=== PATIENT | female | born 1985 | race Caucasian/White ===

== ENCOUNTER 2016-12-05 17:55 | Emergency (ER) | payer MEDICAID, OTHER ==
[2016-12-05 18:16] VITALS: BP 130/87
--- NOTE | 2016-12-05 18:52 | UC ---
Headache HPI - HPI Summary HPI Summary: 31 yo female with frontal TORRES since this AM throbbing nausea but no vomiting photophobia no f/c no stiff neck no CP or sob hx Hep C denies HIV hx opiate addiction on methadone no head trauma hx of migraines HAs becoming more frequent and severe can't remember ever having a brain CT - History Of Current Complaint Chief Complaint: UCHeadache Stated Complaint: HEADACHE Time Seen by Provider: 12/05/16 18:43 Hx Obtained From: Patient Hx Last Menstrual Period: 11/23/16 Onset/Duration: Gradual Onset, Lasting Hours Onset Of Symptoms: Gradual Initially Headache Was: Severe Currently Pain Is: Severe Pain Intensity: 8 Pain Scale Used: 0-10 Numeric Timing: Constant Character: Throbbing Location of Headache: Frontal Aggravating Factor: Nothing Allevating Factors: Nothing Associated Signs And Symptoms: Positive: Nausea - Allergies/Home Medications Allergies/Adverse Reactions: Allergies Allergy/AdvReac Type Severity Reaction Status Date / Time Acetaminophen Allergy See Comment Verified 12/05/16 18:16 PMH/Surg Hx/FS Hx/Imm Hx Previously Healthy: Yes Other History Of: Hepatitis C - Surgical History Surgical History: Yes Surgery Procedure, Year, and Place: gi surgery: major bowel obstruction, appy, cholecystectomy,. ovarian cyst 07/24, 3 [facility] left wrist - Family History Known Family History: Positive: Hypertension, Other - migraines - Social History Alcohol Use: None Substance Use Type: Prescribed, Other Substance Use Comment - Amount & Last Used: PT D/C'D FROM [facility] 08/20/2013 Smoking Status (MU): Light Every Day Tobacco Smoker Type: Cigarettes Amount Used/How Often: 5 cigs per day Length of Time of Smoking/Using Tobacco: 16 Years Have You Smoked in the Last Year: Yes - Immunization History Most Recent Influenza Vaccination: March 2015 Most Recent Tetanus Shot: Unknown Review of Systems Constitutional: Negative Skin: Negative Eyes: Negative ENT: Negative Respiratory: Negative Cardiovascular: Negative Gastrointestinal: Negative Genitourinary: Negative Motor: Negative Neurovascular: Negative Musculoskeletal: Negative Neurological: Headache Psychological: Negative All Other Systems Reviewed And Are Negative: Yes Physical Exam Triage Information Reviewed: Yes Appearance: Well-Appearing, No Pain Distress, Well-Nourished Vital Signs: Initial Vital Signs Temp 97.8 F 12/05/16 18:10 Pulse 57 12/05/16 18:10 Resp 16 12/05/16 18:10 BP 130/87 12/05/16 18:10 Pulse Ox 100 12/05/16 18:10 Eyes: Positive: Conjunctiva Clear, Other: - PERRL/EOMI, fundi benign ENT: Positive: Hearing grossly normal. Negative: Pharyngeal erythema, Nasal congestion, Nasal drainage, Tonsillar swelling, Tonsillar exudate, Trismus, Muffled/hoarse voice Neck: Positive: Supple, Nontender Respiratory: Positive: Lungs clear, Normal breath sounds, No respiratory distress Cardiovascular: Positive: RRR Musculoskeletal: Positive: ROM Intact, No Edema Neurological Exam: Normal Neurological: Positive: Alert, Other: - cn2-12 intact, non focal exam, strength 5/5 dtrs symetric Psychological Exam: Normal Skin Exam: Normal Re-Evaluation - Re-Evaluation First Eval Re-Evaluation Time: 20:16 Change: Improved Headache Course/Dx - Course Course Of Treatment: ct negative - Differential Dx/Diagnosis Provider Diagnoses: headache (suspect migraine) Discharge - Discharge Plan Condition: Stable Disposition: HOME Prescriptions: Naproxen Sodium [Naproxen Sodium 500 MG TAB] 500 mg PO BID PRN #30 tab PRN Reason: Pain Ondansetron TAB* [Zofran Tab*] 4 mg PO Q6H PRN #10 tab PRN Reason: Nausea Patient Education Materials: Acute Headache (ED) Referrals: Abdulaziz Lipscomb MD [Primary Care Provider] - As Soon As Possible Additional Instructions: CT negative recheck for new or worsening symptoms I suggest you see your MD re headache management
[2016-12-05] MEDS ORDERED: Ondansetron ODT TAB* 4 MG PO ONE (18:53)
[2016-12-05] MEDS ORDERED: Ketorolac INJ* 30 MG/ML 1 ML VIAL IM ONE (19:34)
--- NOTE | 2016-12-05 19:59 | RAD ---
Indication: Headache. Nausea. History of migraines. Comparison: March 14, 2006 MRI and March 08, 2006 CT. Technique: Noncontrast CT vertex of skull through foramen magnum. Report: The sulci, ventricles, and basal cisterns are normal for age. Mosher matter white matter differentiation is preserved without evidence for edema. No intra or extra axial hemorrhage, mass, or fluid collection detected. The basilar artery is tortuous unchanged from the 2006 exam without concern. Unremarkable visualized orbital contents. Unremarkable calvarium and skull base. Unremarkable scalp. The visualized paranasal sinuses and mastoid air spaces are clear. IMPRESSION: Negative unenhanced head CT.
== END 2016-12-05 20:30 | disposition home or self-care (01) ==
LOC: UCCORT 17:55
DX: R51 Headache (principal); B19.20 Unspecified viral hepatitis C without hepatic coma; F11.20 Opioid dependence, uncomplicated; Z72.0 Tobacco use
CPT/HCPCS: 70450; 84702; 96372; 99212; A9270-GY; G0463; J1885